=== PATIENT | female | born 1945 | race Caucasian/White ===

== ENCOUNTER 2025-06-08 10:58 | Emergency (ER) | payer MEDICARE, SELFPAY ==
[2025-06-08 11:01] VITALS: BP 174/87
[2025-06-08 11:04] VITALS: BP 174/87
[2025-06-08 11:05] VITALS: BMI 27.7
[2025-06-08] MEDS: TYLENOL 1000 MG PO (11:50)
[2025-06-08 12:00] VITALS: BP 163/102
--- NOTE | 2025-06-08 12:37 | ED.GENMED ---
History of Present Illness
General
Chief Complaint: Fall
Source: patient
Exam Limitations: none
Time Seen by Provider: 06/08/25 11:16
Nursing documentation reviewed up to this point in time: agreed with
History of Present Illness
History of Present Illness:
see MDM
Course
Orders/Labs/Results
Orders:
Orders
06/08/25 11:36
CT Cervical Spine W/o Iv Contr Urgent
Comment:
Reason For Exam: fall on street
CT Facial Bones W/o Iv Contras Urgent
Comment:
Reason For Exam: fall hit face
CT Head W/o Iv Contrast Urgent
Comment:
Reason For Exam: fall hit head
Acetaminophen [Tylenol] 1,000 mg PO NOW STA
CR Hand - Right Min 3 Views Urgent
Comment:
Reason For Exam: fall R thumb pain
CR Knee- Right 4 Or More View* Urgent
Comment:
Reason For Exam: fall R knee pain, h/o replacement
CR Wrist - Right Min 3 Views Urgent
Comment:
Reason For Exam: fall R wrist pain
Vital Signs
Initial and Last Documented VS:
Initial Vital Signs
BP
174/87
06/08/25 11:01
Last Documented Vital Signs
Temp Pulse Resp BP Pulse Ox
36.7 C 82 18 163/102 94
06/08/25 11:04 06/08/25 11:04 06/08/25 11:04 06/08/25 12:00 06/08/25 12:48
MDM/Problems Addressed
MDM/Problems Addressed:
Note:
CHIEF COMPLAINT(S)
Fall resulting in facial trauma and soreness in the left thumb.
HISTORY OF PRESENT ILLNESS
The patient is an 79-year-old female who experienced a fall while walking to a craft show with her ueqvyyaz-dr-zcz. The kkssaudf-br-noc reported that they were walking on the shoulder of the road where the pavement transitioned from asphalt to
concrete, and the ground was uneven. The patient reportedly tripped three feet past an uneven pavement area and fell abruptly. The llqpmlyw-nu-nvv was walking slightly behind her and expressed guilt for not being beside her during the fall.
Post-fall, the patient was able to get herself up with assistance and sat up but was noted to be shaky.
she feels bretter now
she has R upper lip laceration, some pain in her forehead/face, and R wrist/thumb pain. The patient denies pain in the abdomen, hips, and ribs.
The patient has a history of bilateral knee and hip replacements and a prior shoulder surgery. She had recently received a corticosteroid injection for shoulder arthritis.
no thinners, no neck pain, no back pain, no cp, no abd pain, no pelvis pain
ambulatory
PAST MEDICAL AND SURIGICAL HISTORY
The patient reports bilateral knee replacements, bilateral hip replacements, and prior shoulder surgery.
IMMUNIZATION HISTORY
The patient indicates her last tetanus shot was within the past two to three years and believes her immunizations are up to date.
PHYSICAL EXAM
Nursing notes reviewed and vital signs reviewed.
GENERAL: Alert , in no apparent distress
HEAD: Right sided forehead hematoma, approximately 4 cm
EYE: pupils equal and reactive, no nystagmus, no photophobia
NECK: Supple,full rom, nontender no midline tenderness
ENT: Left upper canine with a fracture through the enamel, no loose teeth
Right upper lip inner and outer laceration involving the vermilion border, stellate laceration on the buccal mucosa which is not gaping
CARDIAC: Regular rate and rhythm . no edema
LUNGS: Clear breath sounds bilaterally, no acute respiratory distress, no wheezes/rales/rhonchi
ABDOMEN: Soft, without focal tenderness, no r/g, no cvat
NEUROLOGICAL: Alert and orientedx 4, cn intact, no facial asymmetry, 5/5 strength in UE/LE, sensation intact, romberg neg, ambulates without assistance, neg pronator drift
SKIN: Warm and dry, irregular puncture laceration right upper lip approximately 0.5 cm
MUSCULOSKELETAL: Right anterior knee with slight bruising and a superficial abrasion, pain with flexion but full flexion intact, no hip tenderness bilaterally, no shoulder tenderness bilaterally
Right radial wrist tender, full range of motion intact, no deformity
Right thumb mildly tender, history of arthritis with changes
PSYCH: Normal and appropriate interaction.
PLAN
1. X-ray the left hand and wrist to assess for possible fractures.
2. Administer sutures to the external aspect of the facial laceration.
3. Provide Tylenol for pain management.
4. Maintain observation for any additional symptoms or complications.
DIFFERENTIAL DIAGNOSIS
The Differential Diagnosis includes, in no particular order and is not limited to:
1. Fall-related facial laceration
2. Hand fracture or sprain
3. Contusion
4. Post-fall syncope
5. Progressive arthritis pain
6. Degenerative joint disease
7. Osteoporosis-related fracture
8. Vestibular dysfunction
9. Medication side effects
10. Cardiovascular event leading to instability
*Pulse Oximetry
SaO2: 97
ED Attending Note
-
Portions of this chart may have been created with voice recognition software.� Occasional wrong word or��sound alike� substitutions may have occurred due to the inherent limitations of voice recognition software.
Discharge Plan
Departure
Discharge Problem:
Laceration of lip, Dental injury, Head injury, Fracture of wrist
Instructions: Head Injury in Adults (DC), Laceration Repair With Stitches (DC), BLOOD PRESSURE, Wrist Fracture
Referrals:
Halle Martinez MD [Family Provider]
Andrei Wu MD [Active, Orthopedics] - Follow up in 5-7 days
Activity Restrictions/Additional Instructions:
You have a right distal radius fracture. Wear the splint until you follow-up with orthopedics. Call Dr. Wu or Armando for a follow-up within the next week. Do not get the splint wet. Elevate your arm when you can. Your CAT scans of your head
and neck and facial bones did not show any signs of significant trauma. You do have a bruise on your forehead and I see that you have fractured a tooth partially. You need to eat a soft diet and avoid chewing until you are seen by your dentist.
Please call for an appointment.
The sutures that were placed in your lip need to be removed in 5 to 7 days by your family doctor. You can call for an appointment. Until then make sure to wash your mouth after eating and make sure they stay clean and dry.
Take Tylenol for pain. Return for any concerns like severe or the worst headache of your life, confusion, vomiting, fever, facial swelling, wound drainage or any concerns
Interventions
Interventions:
*Risk Screen - Suicide Last Done: 06/08/25 11:03
*General Assessment Last Done: 06/08/25 11:03
*Neglect/Abuse Screening Last Done: 06/08/25 11:03
*ED- Fall Risk Assessment Last Done: 06/08/25 11:03
*ED COVID-19 Vaccine History Last Done: 06/08/25 11:03
ED-Musculoskeletal Assessment Last Done: 06/08/25 12:01
ED- Neurological Assessment Last Done: 06/08/25 11:05
ED-Skin Assessment Last Done: 06/08/25 12:01
Discharge Date and Time
Print Language: ZAMBIAN
[2025-06-08 13:01] VITALS: BP 157/140
[2025-06-08 14:00] VITALS: BP 123/94
== END 2025-06-08 14:58 | disposition home or self-care (01) ==
LOC: EMR 10:58
PROVIDERS: EMERGENCY PHYSICIAN Emergency Medicine; FAMILY PHYSICIAN Family Medicine
DX: S01.511A Laceration without foreign body of lip, initial encounter (principal); S02.5XXA Fracture of tooth (traumatic), initial encounter for closed fracture; S09.90XA Unspecified injury of head, initial encounter; S52.571A Other intraarticular fracture of lower end of right radius, initial encounter for closed fracture; M19.019 Primary osteoarthritis, unspecified shoulder; M19.041 Primary osteoarthritis, right hand; Z96.643 Presence of artificial hip joint, bilateral; Z96.653 Presence of artificial knee joint, bilateral; W01.0XXA Fall on same level from slipping, tripping and stumbling without subsequent striking against object, initial encounter; Y93.01 Activity, walking, marching and hiking; Y92.480 Sidewalk as the place of occurrence of the external cause
CPT/HCPCS: 99284; 12011; 70450; 70486; 72125; 73110; 73130; 73564